=== PATIENT | female | born 1985 | race Caucasian/White ===

== ENCOUNTER 2023-10-27 10:12 | Outpatient (CLI) | payer OTHER, SELFPAY | END 2023-10-27 10:13 | disposition home or self-care (01) | LOC: AMB 10-28 17:53 | PROVIDERS: PCP Family Medicine; Visit Provider Family Medicine | DX: M54.9 Dorsalgia, unspecified (principal) | CPT/HCPCS: A0425; A0427 ==

== ENCOUNTER 2023-11-08 16:04 | Outpatient (CLI) | payer OTHER, SELFPAY | END 2023-11-08 16:05 | disposition home or self-care (01) | LOC: AMB 11-25 13:05 | PROVIDERS: PCP Family Medicine; Visit Provider Emergency Medicine | DX: M54.9 Dorsalgia, unspecified (principal) | CPT/HCPCS: A0425; A0427 ==